=== PATIENT | male | born 1970 | race African-American/Black ===

== ENCOUNTER 2017-01-30 14:14 | Emergency (ER) | payer SELFPAY ==
--- NOTE | 2017-02-07 11:03 | ER ---
ADMIT: 01/30/2017 RM/LOC: ER [facility] MR#: [id number] [facility] [id number] [place] [address] Emergency Room Report SEX: M AGE: 47 : 1970 DATE: 01/30/2017 CHIEF COMPLAINT: Alcohol ingestion. HISTORY OF PRESENT ILLNESS: This is a 47-year-old male that the police were actually just going to help transport to [facility], it sounds like he got aggressive with the police officers so at this time, he was going to halfway. They needed med clearance, because he has drunk alcohol recently. PAST MEDICAL HISTORY: He does not really answer if he has any issues. MEDICATIONS: He said he does not take any. ALLERGIES: NO KNOWN ALLERGIES. HE DRINKS VODKA, I BELIEVE, ON A DAILY BASIS. HE ALSO SMOKES TOBACCO ON A DAILY BASIS. REVIEW OF SYSTEMS: I was not able to obtain because he said those were all stupid questions, that he did walk out of the ER, he does talk, he is cleared to go to halfway. CLINICAL IMPRESSION: Alcohol ingestion. HERNANDEZ Ghosh / René Riojas MD / manuel JOB #: [id number] CC: René Riojas MD, Attending Physician UNKNOWN, Family Physician
== END 2017-01-30 14:27 | disposition home or self-care (01) ==
LOC: ER 14:14
DX: T51.0X1A Toxic effect of ethanol, accidental (unintentional), initial encounter (principal); F17.210 Nicotine dependence, cigarettes, uncomplicated; Y99.8 Other external cause status